=== PATIENT | female | born 1970 | race Caucasian/White ===

== ENCOUNTER → 2017-02-14 | Outpatient (CLI) | payer OTHER ==
--- NOTE | 2017-02-15 11:12 | MM ---
Reason for exam: screening (asymptomatic). Last mammogram was performed 5 years and 7 months ago. Physical Findings: A clinical breast exam by your physician is recommended on an annual basis and results should be correlated with mammographic findings. MG Screening Mammo w CAD Bilateral CC and MLO view(s) were taken. Prior study comparison: July 31, 2011, mammogram, performed at [facility]. There are scattered fibroglandular densities. There is a tiny chronic nodularity in the right axilla. There is no discrete abnormality. Benign axillary lymph nodes x 2. ASSESSMENT: Benign, BI-RAD 2 RECOMMENDATION: Routine screening mammogram of both breasts in 1 year.
== END | disposition home or self-care (01) ==
LOC: RADMAMWWP 09:43
PROVIDERS: ATTEND Family Medicine
DX: Z12.31 Encounter for screening mammogram for malignant neoplasm of breast (principal)

== ENCOUNTER 2017-11-08 13:19 | Emergency (ER) | payer OTHER ==
[2017-11-08 13:23] VITALS: BP 154/86; PULSE 108; RESP 20; TEMP 98.8
--- NOTE | 2017-11-08 14:01 | ED ---
Upper Extremity HPI - General Chief Complaint: Extremity Injury, Upper Stated Complaint: lt wrist injury Time Seen by Provider: 11/08/17 13:53 Source: patient, RN notes reviewed Mode of arrival: ambulatory Limitations: no limitations - History of Present Illness Initial Comments: This is a 47-year-old female who presents to the emergency department with chief complaint of left wrist injury. Patient states that last evening at approximately 7 PM she was walking down the steps on her deck. She states that she missed a step and fell forward landing on an outstretched hand. Patient denies any swelling and states that she has normal range of motion. She states that she applied ice immediately and took ibuprofen last night. She states that she has fractured this wrist in the past so had a brace at home. She put the brace on this morning and took another dose of ibuprofen before going to work. Patient denies any other injury or trauma. She describes the pain as a throbbing with radiation up the forearm, some numbness and tingling of the palm of the hand and with palpation there is a piercing/sharp pain felt in the mid wrist. Denies fever, chills, chest pain, shortness of breath, abdominal pain, nausea or vomiting, constipation or diarrhea, dysuria or hematuria, headache or vision changes. - Related Data Home Medications Medication Instructions Recorded Confirmed Cefdinir [Omnicef] 300 mg PO Q12HR 11/08/17 11/08/17 Fluconazole [Diflucan] 100 mg PO BID 11/08/17 11/08/17 Lisdexamfetamine Dimesylate 60 mg PO QAM 11/08/17 11/08/17 [Vyvanse] Multivitamins, Thera [Multivitamin 1 tab PO DAILY 11/08/17 11/08/17 (formulary)] Whick-3 Fatty Acids [Whick-3] 1,000 mg PO DAILY 11/08/17 11/08/17 Ubidecarenone [Co Q-10] 100 mg PO DAILY 11/08/17 11/08/17 Allergies Allergy/AdvReac Type Severity Reaction Status Date / Time No Known Allergies Allergy Verified 11/08/17 13:33 Review of Systems ROS Statement: Those systems with pertinent positive or pertinent negative responses have been documented in the HPI. ROS Other: All systems not noted in ROS Statement are negative. Past Medical History Past Medical History: No Reported History History of Any Multi-Drug Resistant Organisms: None Reported Past Surgical History: Back Surgery, Section Past Psychological History: No Psychological Hx Reported Smoking Status: Never smoker Past Alcohol Use History: None Reported Past Drug Use History: None Reported General Exam - General Exam Comments Initial Comments: General: Awake and alert, well-developed; in no apparent distress. HEENT: Head atraumatic, normocephalic. Pupils are equal, round and reactive to light. Extraocular movements intact. Oropharynx moist without erythema or exudate. Neck: Supple. Normal ROM. Cardiovascular: Regular rate and rhythm. No murmurs, rubs or gallops. Chest symmetrical. Respiratory: Lungs clear to auscultation bilaterally. No wheezes, rales or rhonchi. Normal respiratory effort with no use of accessory muscles. Musculoskeletal: Normal ROM of the left wrist. No swelling, ecchymosis or erythema noted. There is tenderness on palpation of mid wrist. Sensation is intact. Radial pulses are 2+ equal and palpable bilaterally. Skin: [place], warm and dry without rashes or lesions. Neurological: Alert and oriented x3. CN II-XII grossly intact. Speech is fluent and answers are appropriate. No focal neuro deficits. Psychiatric: Normal mood and affect. No overt signs of depression or anxiety noted. Limitations: no limitations Course Vital Signs 11/08/17 13:21 Temperature 98.8 F Pulse Rate 108 H Respiratory 20 Rate Blood Pressure 154/86 O2 Sat by Pulse 98 Oximetry Medical Decision Making - Medical Decision Making This is a 47-year-old female who presents to the emergency department with chief complaint of left wrist injury. Patient states that she fell on an outstretched hand yesterday evening. Denies snuffbox tenderness. On physical examination, no swelling, ecchymosis or erythema noted. There is normal range of motion and mild tenderness on palpation. Patient is neurovascularly intact and in no acute distress. She does have her own wrist brace from a previous fracture. Patient requests to have contact information for follow-up to orthopedics. Patient will be provided with this information. Patient will be discharged home at this time. She is in agreement and voices understanding. All questions were answered. - Radiology Data Radiology results: report reviewed Left wrist x-ray impression: No fracture or dislocation, follow up as indicated. Disposition Clinical Impression: Sprain and strain of wrist Disposition: HOME SELF-CARE Condition: Good Instructions: Wrist Injury (ED), Wrist Sprain (ED) Additional Instructions: Please follow up with primary care provider within 1-2 days. Return to emergency department if symptoms should worsen or any concerns arise. Is patient prescribed a controlled substance at d/c from ED?: No Referrals: Mp Suh MD [Primary Care Provider] - 1-2 days Kenji Gresham MD [Medical Doctor] - 1-2 days Time of Disposition: 14:35
--- NOTE | 2017-11-08 14:14 | XR ---
Left wrist HISTORY: Left wrist pain, trauma 4 views of the left wrist Bone mineralization, joint spaces and alignment are maintained seen. IMPRESSION: No fracture or dislocation, follow-up as indicated.
== END 2017-11-08 14:45 | disposition home or self-care (01) ==
LOC: EC 13:19
DX: S63.502A Unspecified sprain of left wrist, initial encounter (principal); S66.912A Strain of unspecified muscle, fascia and tendon at wrist and hand level, left hand, initial encounter; Z79.899 Other long term (current) drug therapy; Z87.81 Personal history of (healed) traumatic fracture; W10.9XXA Fall (on) (from) unspecified stairs and steps, initial encounter; Y93.01 Activity, walking, marching and hiking; Y92.009 Unspecified place in unspecified non-institutional (private) residence as the place of occurrence of the external cause
CPT/HCPCS: 99283

== ENCOUNTER 2018-09-06 08:10 | Day surgery (SDC) | payer OTHER ==
[2018-09-04 16:51] VITALS: BMI 36.0
[~2018-09-06 08:10] MED LIST: LACTATED RINGERS 1,000 ML IV SCH
[2018-09-06 08:37] VITALS: RESP 16; TEMP 98.8
[2018-09-06] MEDS ORDERED: LIDOCAINE 1% 20 ML VIAL (10MG/ML) FOR IV START INTRADERMA ONE (08:44)
[2018-09-06] MEDS ORDERED: PROPOFOL 10 MG/ML 20 ML VIAL IV ONE (09:06)
--- NOTE | 2018-09-06 09:20 | P.PCN ---
Date of Procedure: 09/06/18 Procedure(s) Performed: BRIEF HISTORY: Patient is a 48-year-old pleasant white female, scheduled for an elective colonoscopy as a part of screening for colorectal neoplasia. PROCEDURE PERFORMED: Colonoscopy. PREOPERATIVE DIAGNOSIS: Screening for colon cancer. IV sedation per Anesthesia. PROCEDURE: After informed consent was obtained, the patient, was brought into the endoscopy unit. IV sedation was administered by Anesthesia under continuous monitoring. Digital rectal examination was normal. Initially the Olympus CF- 160 flexible video colonoscope was then inserted in the rectum, gradually advanced into the cecum without any difficulty. Careful examination was performed as the scope was gradually being withdrawn. Ileocecal valve and the appendiceal orifice were visualized and appeared normal. Prep was excellent. Mucosa of the cecum, ascending colon, transverse colon, descending colon, sigmoid colon, and rectum appeared normal. Retroflexion was performed in the rectum and no lesions were seen. The patient tolerated the procedure well. IMPRESSION: Normal-appearing colon from rectum to cecum with no evidence of colorectal neoplasia. RECOMMENDATIONS: Findings of this examination were discussed with the patient as well as her family she was advised to have a repeat screening colonoscopy in 10 years.
[2018-09-06 09:49] VITALS: BP 130/86; PULSE 79
== END 2018-09-06 10:11 | disposition home or self-care (01) ==
LOC: ORWHC2ENDO 08:10
PROVIDERS: ATTEND Internal Medicine Gastroenterology
DX: Z12.11 Encounter for screening for malignant neoplasm of colon (principal); F32.9 Major depressive disorder, single episode, unspecified; K21.9 Gastro-esophageal reflux disease without esophagitis; Z87.09 Personal history of other diseases of the respiratory system; Z79.1 Long term (current) use of non-steroidal anti-inflammatories (NSAID); Z79.899 Other long term (current) drug therapy; Z91.018 Allergy to other foods
CPT/HCPCS: 81025; J2704; G0121

== ENCOUNTER → 2022-06-30 | Outpatient (CLI) | payer OTHER ==
--- NOTE | 2022-07-03 18:17 | MM ---
Reason for Exam: Screening (asymptomatic). Last mammogram was performed 5 year(s) and 4 month(s) ago. Patient History: Menarche at age 10. First Full-Term at age 22. Patient has history of breast feeding. Last menstrual period: 07/30/2021 Risk Values: [place] 5 year model risk: 1.0%. NCI Lifetime model risk: 7.7%. Prior Study Comparison: 07/31/2011 Screening Mammogram, [facility]. 02/14/2017 Bilateral Screening Mammogram, [facility]. Tissue Density: There are scattered fibroglandular densities. Findings: Analyzed By CAD. Chronic nodularity posterior upper outer quadrant right breast. There is no suspicious group of microcalcifications or new suspicious mass in either breast. Overall Assessment: Benign, BI-RAD 2 Management: Screening Mammogram of both breasts in 1 year. 1. Patient should continue monthly self breast exams. 2. A clinical breast exam by your physician is recommended on an annual basis. 3. This exam should not preclude additional follow-up of suspicious palpable abnormalities. Electronically signed and approved by: Ishaan Palomares M.D. Radiologist
== END | disposition home or self-care (01) ==
LOC: RADMAMWWP 14:43
PROVIDERS: ATTEND Family Medicine
DX: Z12.31 Encounter for screening mammogram for malignant neoplasm of breast (principal)
CPT/HCPCS: 77067